=== PATIENT | female | born 1995 | race Caucasian/White ===

== ENCOUNTER → 2017-02-18 | Outpatient (REF) | payer OTHER | LOC: M SFHCLERA 10:32 | PROVIDERS: ATTEND Physician Assistant | DX: J00 Acute nasopharyngitis [common cold] (principal) ==

== ENCOUNTER → 2017-06-02 | Outpatient (REF) | payer OTHER ==
[2017-06-02 12:40] LABS: MEAN CORPUSCULAR HEMOGLOBIN 30.3 pg (27.0-33.0); MEAN CORPUSCULAR HGB CONC 33.5 g/dl (32.0-36.5); MEAN CORPUSCULAR VOLUME 90.6 fl (80.0-96.0); WHITE BLOOD COUNT 6.5 10^3/uL (4.0-10.0)
[2017-06-02 13:38] LABS: ALBUMIN/GLOBULIN RATIO 1.29 (1.00-1.93); ALKALINE PHOSPHATASE 81 U/L (45-117); ALT/SGPT 19 U/L (12-78); ANION GAP 6 MEQ/L (8-16); AST/SGOT 8 U/L (15-37); BILIRUBIN,TOTAL 0.7 MG/DL (0.2-1.0); BLOOD UREA NITROGEN 16 MG/DL (7-18); CALCIUM LEVEL 9.6 MG/DL (8.5-10.1); CARBON DIOXIDE LEVEL 30 MEQ/L (21-32); CHLORIDE LEVEL 105 MEQ/L (98-107); CREATININE FOR GFR 0.64 MG/DL (0.55-1.02); FREE T4 1.06 NG/DL (0.78-1.33); GLUCOSE, FASTING 93 MG/DL (70-105); POTASSIUM SERUM 4.1 MEQ/L (3.5-5.1); SODIUM LEVEL 141 MEQ/L (136-145); TOTAL PROTEIN 7.1 GM/DL (6.4-8.2)
== END ==
LOC: M SFHCLERA 08:04
PROVIDERS: ATTEND Family Medicine
DX: E16.2 Hypoglycemia, unspecified (principal); J30.9 Allergic rhinitis, unspecified

== ENCOUNTER → 2017-07-21 | Outpatient (REF) | payer OTHER | LOC: M LAB REF 17:53 | PROVIDERS: ATTEND Advanced Practice Midwife | DX: Z12.4 Encounter for screening for malignant neoplasm of cervix (principal) ==

== ENCOUNTER → 2017-08-07 | Outpatient (CLI) | payer OTHER ==
[2017-08-07 12:29] LABS: TOTAL PROTEIN 7.6 GM/DL (6.4-8.2)
[2017-08-07 12:34] LABS: VITAMIN B12 LEVEL 547 PG/ML
[2017-08-07 12:35] LABS: FOLATE > 24.0 NG/ML
[2017-08-10 14:04] LABS: ALBUMIN 4.73 GM/DL (3.29-5.55); ALBUMIN % 62.2 % (55.8-66.1); GAMMA GLOBULIN % 14.7 % (11.1-18.8)
[2017-08-12 00:07] LABS: SJOGREN'S ANTI SS-A <0.2 AI (0.0-0.9); SJOGREN'S ANTI SS-B <0.2 AI (0.0-0.9); VITAMIN E LEVEL 7.9 mg/L (5.3-16.8)
== END ==
LOC: M LRY 10:41
PROVIDERS: ATTEND Psychiatry & Neurology Neurology
DX: G60.9 Hereditary and idiopathic neuropathy, unspecified (principal); R25.1 Tremor, unspecified

== ENCOUNTER → 2018-06-02 | Outpatient (REF) | payer OTHER | LOC: M SFHCLERA 18:54 | DX: J02.9 Acute pharyngitis, unspecified (principal) ==

== ENCOUNTER → 2018-06-18 | Outpatient (REF) | payer OTHER | LOC: M SFHCLERA 18:21 | DX: J02.9 Acute pharyngitis, unspecified (principal) ==

== ENCOUNTER 2020-04-03 22:10 | Day surgery (SDC) | payer BC, OTHER ==
[~2020-04-03 22:10] MED LIST: AZITHROMYCIN 250MG TABLET As Ordered ONE; LIDOCAINE 1% SDV 5ML VIAL As Ordered ONE; cefTRIAXone SOD 250MG VIAL (J0696 PER 250MG) As Ordered ONE; metroNIDAZOLE (FLAGYL) 500MG TABLET As Ordered ONE
[2020-04-04] MEDS ORDERED: KETOROLAC 30 MG/ML 1ML VIAL As Ordered ONE (01:09)
[2020-04-04] MEDS ORDERED: ZOSYN 3.375GM VIAL (J2543) ONE (01:09)
[2020-04-04] MEDS ORDERED: KETOROLAC 30 MG/ML 1ML VIAL ONE (01:09)
[2020-04-04] MEDS ORDERED: ISOVUE-370 76% 100ML VIAL As Ordered ONE (01:09)
[2020-04-04] MEDS ORDERED: ZOSYN 3.375GM VIAL (J2543) As Ordered ONE ×3 (01:46→15:32)
[2020-04-04] MEDS ORDERED: fentaNYL 100 MCG/2 ML INJECTION (J3010) As Ordered ONE (04:36)
[2020-04-04] MEDS ORDERED: ONDANSETRON 4MG/2ML VIAL As Ordered ONE ×2 (04:36→06:30)
[2020-04-04] MEDS ORDERED: propofoL 200 MG/20 ML VIAL As Ordered ONE (04:36)
[2020-04-04] MEDS ORDERED: dexameTHASONE 4 MG/ML 1ML VIAL (J1100 PER 1MG) As Ordered ONE (04:36)
[2020-04-04] MEDS ORDERED: MIDAZOLAM INJ 2MG/2ML VIAL (J2250 PER 1MG) As Ordered ONE (04:36)
[2020-04-04] MEDS ORDERED: ROCURONIUM BROMIDE 50 MG/5 ML VIAL As Ordered ONE (04:36)
[2020-04-04] MEDS ORDERED: LIDOCAINE 2% 100MG/5ML SDV (FOR ANES.) As Ordered ONE (04:36)
[2020-04-04] MEDS ORDERED: SUGAMMADEX SODIUM 500 MG/5 ML VIAL (BRIDION) As Ordered ONE (04:54)
[2020-04-04] MEDS ORDERED: ACETAMINOPHEN 1000MG 100ML IV BTL (OFIRMEV) (J0131 PER 10MG) As Ordered ONE (04:54)
[2020-04-04] MEDS ORDERED: BUPIVACAINE HCL 0.25% 30ML VIAL As Ordered ONE (04:59)
[2020-04-04] MEDS ORDERED: ONDANSETRON 4MG/2ML VIAL ONE (06:30)
[2020-04-04] MEDS ORDERED: oxyCODONE 5MG TAB As Ordered ONE (06:30)
[2020-04-04] MEDS ORDERED: oxyCODONE 5MG TAB ONE (06:30)
[2020-04-04] MEDS ORDERED: IBUPROFEN 600MG TAB As Ordered ONE (11:26)
[2020-04-04] MEDS ORDERED: NORCO, ANEXSIA 5/325MG TABLET (HYDROcodone/ACETAMINOPHEN) As Ordered ONE (15:38)
[2020-05-12 11:53] LABS: APPEARANCE, URINE CLEAR (CLEAR); BACTERIA, URINE AUTO NEGATIVE (NEGATIVE); BILIRUBIN, URINE AUTO NEGATIVE (NEGATIVE); BLOOD, URINE BLOOD NEGATIVE (NEGATIVE); COLOR, URINE YELLOW (YELLOW); GLUCOSE, URINE (UA) AUTO NEGATIVE (NEGATIVE); KETONE, URINE AUTO 2+ mg/dL (NEGATIVE); LEUKOCYTE ESTERASE, URINE AUTO TRACE (NEGATIVE); MUCUS, URINE SMALL (NEGATIVE); NITRITE, URINE AUTO NEGATIVE (NEGATIVE); PROTEIN, URINE AUTO NEGATIVE (NEGATIVE); RBC, URINE AUTO 2 /HPF (0-3); SPECIFIC GRAVITY URINE AUTO 1.028 (1.002-1.035); SQUAMOUS EPITHELIAL CELL UR AU 3 /HPF (0-6); WBC, URINE AUTO 4 /HPF (0-3)
[2020-05-13 10:23] LABS: BASO # 0.1 10^3/uL (0.0-0.2); BASO % 0.3 % (0.0-1.0); EOS % 0.1 % (0.0-3.0); HEMATOCRIT 39.6 % (36.0-47.0); HEMOGLOBIN 13.5 g/dl (12.0-15.5); LYMPH # 1.4 10^3/uL (1.5-5.0); LYMPH % 7.7 % (24.0-44.0); MEAN CORPUSCULAR HEMOGLOBIN 30.9 pg (27.0-33.0); MEAN CORPUSCULAR HGB CONC 34.1 g/dl (32.0-36.5); MEAN CORPUSCULAR VOLUME 90.6 fl (80.0-96.0); MONO # 0.8 10^3/uL (0.0-0.8); MONO % 4.7 % (0.0-5.0); NEUTROPHILS # 15.5 10^3/uL (1.5-8.5); NEUTROPHILS % 86.9 % (36.0-66.0); PLATELET COUNT, AUTOMATED 191 10^3/uL (150-450); RED BLOOD COUNT 4.37 10^6/uL (4.00-5.40); WHITE BLOOD COUNT 17.8 10^3/uL (4.0-10.0)
--- NOTE | 2020-06-14 11:23 | RO ---
Date of Operation: 04/03/2020 PREOPERATIVE DIAGNOSIS: Acute appendicitis. POSTOPERATIVE DIAGNOSIS: Acute appendicitis. PROCEDURE PERFORMED: Laparoscopic appendectomy. SURGEON: Chandler Brito M.D. ANESTHESIA: General INDICATIONS FOR PROCEDURE: Patient is a 24-year-old woman who presented to the emergency department with a history of abdominal pain becoming localized in the right lower quadrant. She was found to have tenderness and an elevated white count. A CT scan was done, which revealed a distended thickened appendix with some periappendiceal inflammation. She is now for a laparoscopic appendectomy. OPERATIVE PROCEDURE: The patient was brought to the operating room and placed on the table in a supine position. She was placed under general endotracheal anesthesia. The patients abdomen was prepped and draped in a sterile fashion. A 0.25% Marcaine was infiltrated at each of the trocar sites as needed. A short supraumbilical midline incision was made. A Veress needle was inserted and after a positive hanging drop test, the abdomen was insufflated with carbon dioxide gas without difficulty. A short longitudinal incision was made and an 11-mm trocar was placed. The laparoscope was inserted. Initial examination showed no evidence of acute inflammatory changes. The patient was tilted to a slight Trendelenburg positive and rolled slightly to the left. Two 5-mm trocars were placed in the left lower quadrant. Graspers were inserted. The terminal ileum was elevated superiorly and medially and the markedly distended and inflamed appendix was identified lying inferior to this. The mesoappendix was grasped and elevated. The mesoappendix was divided using the hook cautery. The vascular bundle was identified and this was thoroughly cauterized before being divided with the cautery. The appendix was dissected free down to its base. Even at the base, the appendix appeared somewhat enlarged. A 45-mm endoscope linear cutter stapler was placed across the base of the appendix and closed and fired. The appendix was placed in an Endopouch. A single small bleeding point along the staple line was controlled with the cautery. The right lower quadrant was irrigated and inspected, and there was no evidence of bleeding. The staple line was clearly intact. The patient was returned to a flat position. The abdomen was deflated and the trocars were removed. The appendix was recovered through the supraumbilical site without difficulty. This was sent for permanent pathology. The peritoneum at the supraumbilical site was closed with 2-0 Vicryl. The fascia was closed with interrupted simple sutures of 2-0 Vicryl. The skin incisions were then all closed with buried 4-0 Vicryl and Steri-Strips. Light dressings were applied. The patient tolerated the procedure well without apparent complication. She was awakened in the operating room, extubated, and moved to the recovery room in stable condition. DILEEP
[2020-06-17 10:40] LABS: ALBUMIN 4.1 GM/DL (3.2-5.2); ALT/SGPT 15 U/L (12-78); BILIRUBIN,DIRECT 0.3 MG/DL (0.0-0.2); BILIRUBIN,TOTAL 1.4 MG/DL (0.2-1.0); BLOOD UREA NITROGEN 9 MG/DL (7-18); CALCIUM LEVEL 8.9 MG/DL (8.5-10.1); CARBON DIOXIDE LEVEL 28 MEQ/L (21-32); CHLORIDE LEVEL 104 MEQ/L (98-107); CREATININE FOR GFR 0.68 MG/DL (0.55-1.30); GLOMERULAR FILTRATION RATE > 60.0 (>60); GLUCOSE, FASTING 82 MG/DL (70-100); LIPASE 85 U/L (73-393); POTASSIUM SERUM 3.8 MEQ/L (3.5-5.1); SODIUM LEVEL 138 MEQ/L (136-145); TOTAL PROTEIN 7.1 GM/DL (6.4-8.2)
[2020-06-17 10:41] LABS: HCG, SERUM QUALITATIVE NEGATIVE (NEGATIVE)
== END 2020-04-04 16:00 | disposition home or self-care (01) ==
LOC: M ED 22:10 → M SDC 23:28
PROVIDERS: ATTEND Surgery
DX: K35.890 Other acute appendicitis without perforation or gangrene (principal); J45.909 Unspecified asthma, uncomplicated
CPT/HCPCS: 44970; 74177; 80048; 80076; 81001; 83690; 84703; 85025; 87081; 87086; 87486; 87581; 87633; 87798; 88304; 96365; 96375; J0131; J0696; J1100; J1885; J2250; J2405; J2543; J3010; Q9967